=== PATIENT | male | born 1965 | race Two or more races ===

== ENCOUNTER 2020-08-30 09:06 | Inpatient (IN) | payer MEDICAID ==
[2020-08-30] VITALS (18 sets, daily range): BP systolic 98–127; BP diastolic 53–84
[~2020-08-30] VITALS: Ht 172.7 cm; Wt 60.0 kg
[~2020-08-30 09:06] MED LIST: NO HOME MEDS
[2020-08-30 10:02] LABS: MEAN PLATELET VOLUME 8.2 FL (7.4-10.4)
[2020-08-30 10:04] LABS: MEAN CORPUSCULAR HEMOGLOBIN 14.1 PG (27.0-31.0); MEAN CORPUSCULAR HGB CONC 26.7 g/dL (33.0-36.5); MEAN CORPUSCULAR VOLUME 52.7 FL (78-98); PLATELET COUNT 872 X10'3 (140-440); RED BLOOD COUNT 2.47 X10'6 (4.70-6.10); RED CELL DISTRIBUTION WIDTH 21.2 % (11.5-14.5)
[2020-08-30 10:07] LABS: HEMOGLOBIN 3.5 g/dl (14.0-17.9)
--- NOTE | 2020-08-30 10:07 | NUR ---
lab called, hgb 3.5, hct 13.2, plt 902
[2020-08-30 10:18] LABS: ALBUMIN 2.3 G/DL (3.4-5.0); ALBUMIN/GLOBULIN RATIO 0.5 (1.1-1.5); ALKALINE PHOSPHATASE 106 IU/L (46-116); ANION GAP 13 (8-16); ASPARTATE AMINO TRANSFERASE 9 U/L (10-37); BILIRUBIN,TOTAL 0.3 MG/DL (0.1-1.0); BLOOD UREA NITROGEN 10 MG/DL (7-18); BUN/CREATININE RATIO 12.3 (5.4-32.0); CALCIUM 7.9 MG/DL (8.5-10.1); CHLORIDE 103 MMOL/L (99-107); CREATININE 0.81 MG/DL (0.60-1.10); GLUCOSE 102 MG/DL (70-104); POTASSIUM 3.7 MMOL/L (3.5-5.1); SODIUM 137 MMOL/L (135-145); TOTAL CARBON DIOXIDE 21.4 MMOL/L (24-32); TOTAL PROTEIN 7.2 G/DL (6.4-8.2); eGFR > 90 ML/MIN
[2020-08-30 10:47] LABS: PLATELET ESTIMATE INCREASED; TOTAL CELLS COUNTED 100
[2020-08-30 10:48] LABS: ALANINE AMINOTRANSFERASE < 6 U/L (12-78); ANISOCYTOSIS 3+; MICROCYTOSIS 3+
[2020-08-30 10:49] LABS: ELLIPTOCYTES FEW; HYPOCHROMASIA 3+; LARGE PLATELETS FEW
[2020-08-30 10:50] LABS: TEAR DROP CELLS FEW
[2020-08-30] MEDS ORDERED: iohexol 300mg/ml 100ml inj. ONE (10:55)
--- NOTE | 2020-08-30 13:26 | NUR ---
TAKEN OVER FROM ZIGGY HOUSER.
[2020-08-30] MEDS ORDERED: potassium Cl 40MEQ/1/2NS 520ml 520 ML IV PRN ×2 (13:40)
[2020-08-30] MEDS ORDERED: magnesium 4gm in 100ml NS 100 ML IV PRN (13:40)
[2020-08-30] MEDS ORDERED: mag hydrox/Alum hydrox/simeth 30ml oral suspension PO PRN (13:40)
[2020-08-30] MEDS ORDERED: potassium Cl 20 mEq SR tablet PO PRN ×2 (13:40)
[2020-08-30] MEDS ORDERED: magnesium hydroxide 30ml (MOM) UD suspension PO PRN (13:40)
[2020-08-30] MEDS ORDERED: ondansetron/PF 4mg/2ml inj IV PRN (13:40)
[2020-08-30] MEDS ORDERED: magnesium 2GM in 50ml NS 50 ML IV PRN (13:40)
[2020-08-30] MEDS ORDERED: acetaminophen 325mg tablet PO PRN (13:40)
[2020-08-30] MEDS: clindamycin 600mg/D5W 50ml 50 ML IV SCH ×2 (14:42→22:45)
[2020-08-30 17:34] LABS: MEAN CORPUSCULAR HEMOGLOBIN 18.9 PG (27.0-31.0); MEAN CORPUSCULAR HGB CONC 30.2 g/dL (33.0-36.5); MEAN CORPUSCULAR VOLUME 62.6 FL (78-98); MEAN PLATELET VOLUME 8.1 FL (7.4-10.4); PLATELET COUNT 702 X10'3 (140-440); RED BLOOD COUNT 2.99 X10'6 (4.70-6.10); RED CELL DISTRIBUTION WIDTH 35.8 % (11.5-14.5); WHITE BLOOD COUNT 8.5 X10'3 (4.5-11.0)
[2020-08-30 17:40] LABS: HEMATOCRIT 18.7 % (42.0-52.0); HEMOGLOBIN 5.7 g/dl (14.0-17.9)
--- NOTE | 2020-08-30 17:46 | NUR ---
RECIVED CALL FROM DR MARRUFO THAT HE TRIED TO ORDER 2 UNITS BUT UNABLE TO ORDER PER MD IF I CAN CALL BLD BANK TO FIX IT.CALLED BLOOD BANK AND PER THEM THEY WILL FIX IT AND BLOOD WILL BE READY IN 5 MIN.
--- NOTE | 2020-08-30 19:07 | NUR ---
BLOOD TRANSFUSION STARTED PT GIVEN DINNER TRAY BLOOD INFUSION BEGAN AT 100 ML AN HR
--- NOTE | 2020-08-30 19:30 | NUR ---
pt wound dressing in place dry intact . placed by previous shift as ordered
--- NOTE | 2020-08-30 19:45 | NUR ---
INCREASED TRANSFUSION TO 280N ML AN HR PT TOLERATING WELL IV PATENT
[2020-08-30] MEDS: K and/or MAG REPLACEMENT MC SCH (20:00)
[2020-08-30 23:18] LABS: HEMOGLOBIN 8.2 g/dl (14.0-17.9); MEAN CORPUSCULAR VOLUME 68.8 FL (78-98)
[2020-08-30 23:19] LABS: HEMATOCRIT 25.3 % (42.0-52.0); MEAN CORPUSCULAR HEMOGLOBIN 22.4 PG (27.0-31.0); MEAN CORPUSCULAR HGB CONC 32.5 g/dL (33.0-36.5); MEAN PLATELET VOLUME 8.4 FL (7.4-10.4); PLATELET COUNT 659 X10'3 (140-440); RED BLOOD COUNT 3.67 X10'6 (4.70-6.10); RED CELL DISTRIBUTION WIDTH 36.6 % (11.5-14.5)
--- NOTE | 2020-08-31 02:38 | NUR ---
pt transfered to a regular hospital bed
[2020-08-31] MEDS: clindamycin 600mg/D5W 50ml 50 ML IV SCH ×4 (04:40→19:36)
--- NOTE | 2020-08-31 06:59 | NUR ---
Patient in room ED 11. I have received report from Lata HOUSER and had the opportunity to ask questions and assume patient care.
[2020-08-31 08:00] VITALS: BP 122/73
[2020-08-31] MEDS: K and/or MAG REPLACEMENT MC SCH ×2 (08:00→19:34)
[2020-08-31 09:40] LABS: HEMATOCRIT 28.5 % (42.0-52.0); MEAN CORPUSCULAR HEMOGLOBIN 21.7 PG (27.0-31.0); MEAN CORPUSCULAR HGB CONC 31.6 g/dL (33.0-36.5); MEAN CORPUSCULAR VOLUME 68.9 FL (78-98); MEAN PLATELET VOLUME 8.6 FL (7.4-10.4); PLATELET COUNT 730 X10'3 (140-440); RED BLOOD COUNT 4.14 X10'6 (4.70-6.10); RED CELL DISTRIBUTION WIDTH 36.4 % (11.5-14.5); WHITE BLOOD COUNT 8.3 X10'3 (4.5-11.0)
[2020-08-31 10:00] VITALS: BP 106/57
[2020-08-31 10:00] LABS: ASPARTATE AMINO TRANSFERASE 6 U/L (10-37); BLOOD UREA NITROGEN 6 MG/DL (7-18)
[2020-08-31 10:02] LABS: ALANINE AMINOTRANSFERASE 10 U/L (12-78); ALBUMIN 2.2 G/DL (3.4-5.0); ALBUMIN/GLOBULIN RATIO 0.5 (1.1-1.5); ALKALINE PHOSPHATASE 96 IU/L (46-116); ANION GAP 7 (8-16); BILIRUBIN,TOTAL 0.9 MG/DL (0.1-1.0); CALCIUM 8.3 MG/DL (8.5-10.1); CHLORIDE 106 MMOL/L (99-107); CREATININE 0.67 MG/DL (0.60-1.10); GLUCOSE 84 MG/DL (70-104); MAGNESIUM 2.4 MG/DL (1.5-2.4); POTASSIUM 4.5 MMOL/L (3.5-5.1); SODIUM 139 MMOL/L (135-145); TOTAL CARBON DIOXIDE 26.5 MMOL/L (24-32); eGFR > 90 ML/MIN
[2020-08-31] MEDS ORDERED: HYDROcodone/acetaminophen 5mg/325mg tablet PO PRN (10:20)
[2020-08-31] MEDS ORDERED: HYDROcodone/acetaminophen 10/325mg tab PO PRN (10:20)
[2020-08-31 10:22] LABS: % IRON SATURATION 9 % (11-46); IRON 23 UG/DL (53-167); TOTAL IRON BINDING CAPACITY 243 UG/DL (259-388)
[2020-08-31 14:23] LABS: HEMATOCRIT 28.7 % (42.0-52.0); HEMOGLOBIN 9.1 g/dl (14.0-17.9); MEAN CORPUSCULAR HEMOGLOBIN 21.8 PG (27.0-31.0); MEAN CORPUSCULAR HGB CONC 31.9 g/dL (33.0-36.5); MEAN CORPUSCULAR VOLUME 68.3 FL (78-98); MEAN PLATELET VOLUME 8.4 FL (7.4-10.4); PLATELET COUNT 754 X10'3 (140-440); RED CELL DISTRIBUTION WIDTH 36.6 % (11.5-14.5); WHITE BLOOD COUNT 8.9 X10'3 (4.5-11.0)
[2020-08-31 18:00] VITALS: BP 126/73
--- NOTE | 2020-08-31 18:38 | NUR ---
Problems reprioritized. Patient report given, questions answered & plan of care reviewed with Vaishnavi HOUSER.
[2020-08-31] MEDS: lactobacillus rhamnosus 10,000 MMU CELLS/CAPSULE PO SCH ×2 (19:36→19:47)
[2020-08-31 22:00] VITALS: BP 121/59
[2020-08-31 22:43] LABS: HEMATOCRIT 29.6 % (42.0-52.0); HEMOGLOBIN 9.2 g/dl (14.0-17.9); MEAN CORPUSCULAR HEMOGLOBIN 21.5 PG (27.0-31.0); MEAN CORPUSCULAR HGB CONC 31.2 g/dL (33.0-36.5); MEAN PLATELET VOLUME 8.4 FL (7.4-10.4); PLATELET COUNT 698 X10'3 (140-440); RED BLOOD COUNT 4.29 X10'6 (4.70-6.10); RED CELL DISTRIBUTION WIDTH 37.2 % (11.5-14.5); WHITE BLOOD COUNT 10.8 X10'3 (4.5-11.0)
[2020-09-01] MEDS: clindamycin 600mg/D5W 50ml 50 ML IV SCH ×2 (02:03→08:37)
[2020-09-01 06:00] VITALS: BP 124/79
[2020-09-01 06:04] LABS: HEMATOCRIT 28.8 % (42.0-52.0); MEAN CORPUSCULAR HEMOGLOBIN 21.6 PG (27.0-31.0); MEAN CORPUSCULAR HGB CONC 31.4 g/dL (33.0-36.5); MEAN PLATELET VOLUME 8.3 FL (7.4-10.4); PLATELET COUNT 698 X10'3 (140-440); RED BLOOD COUNT 4.18 X10'6 (4.70-6.10); RED CELL DISTRIBUTION WIDTH 37.1 % (11.5-14.5); WHITE BLOOD COUNT 9.8 X10'3 (4.5-11.0)
--- NOTE | 2020-09-01 06:06 | NUR ---
Problems reprioritized. Patient report given, questions answered & plan of care reviewed with CORRINA Diaz.
[2020-09-01 06:24] LABS: ALANINE AMINOTRANSFERASE 10 U/L (12-78); ALBUMIN 2.2 G/DL (3.4-5.0); ALBUMIN/GLOBULIN RATIO 0.5 (1.1-1.5); ALKALINE PHOSPHATASE 95 IU/L (46-116); ANION GAP 8 (8-16); ASPARTATE AMINO TRANSFERASE 9 U/L (10-37); BILIRUBIN,TOTAL 0.5 MG/DL (0.1-1.0); BLOOD UREA NITROGEN 10 MG/DL (7-18); BUN/CREATININE RATIO 12.2 (5.4-32.0); CALCIUM 8.2 MG/DL (8.5-10.1); CHLORIDE 104 MMOL/L (99-107); CREATININE 0.82 MG/DL (0.60-1.10); GLUCOSE 97 MG/DL (70-104); MAGNESIUM 2.3 MG/DL (1.5-2.4); POTASSIUM 4.4 MMOL/L (3.5-5.1); SODIUM 136 MMOL/L (135-145); TOTAL CARBON DIOXIDE 24.2 MMOL/L (24-32); TOTAL PROTEIN 6.9 G/DL (6.4-8.2); eGFR > 90 ML/MIN
--- NOTE | 2020-09-01 06:29 | NUR ---
Patient in room ORTHO 4015. I have received report from Jessica HOUSER and had the opportunity to ask questions and assume patient care.
[2020-09-01] MEDS: lactobacillus rhamnosus 10,000 MMU CELLS/CAPSULE PO SCH (08:00)
[2020-09-01] MEDS: K and/or MAG REPLACEMENT MC SCH (08:00)
[2020-09-01] MEDS ORDERED: iron sucrose complex injection 200 MG in normal saline 100ml IV soln 100 ML IV SCH (08:00)
[2020-09-01 10:00] VITALS: BP 116/66
--- NOTE | 2020-09-01 10:00 | NUR ---
wound care consulted for multiple wounds on patient. Pictures in chart indicated atleast 10 wounds all over patients body. Patient refused for wound care to examine or treat wounds. primary nurse notified.
[2020-09-01] MEDS ORDERED: CLIN-97 PO (10:48)
--- NOTE | 2020-09-01 11:19 | NUR ---
Pictures taken on admit yesterday 08/31/20. Pt refusing pictures on discharge Addendum: 09/01/20 at 1120 by Emily Sinha RN Amended: Links added.
--- NOTE | 2020-09-01 13:16 | NUR ---
Pt dischagred [facility] @ 5401. Pt belongings sent with pt. Against medical advice patient removed IV and Tele. Pt refused iv pressure bandages or Optifoams on wounds. Prescription called to [facility] on [address] per pts request. Pt was wheeled down to bus stop in stable condition. Pt highly encouraged to seek out community resources.
== END 2020-09-01 13:10 | disposition home or self-care (01) | DRG 110 ==
LOC: ER 09:07 → ED HOLD 13:39 → ORTHO 4S 08-31 07:50
PROVIDERS: ADMIT Family Medicine; ATTEND Family Medicine
PROC: 30233N1 Transfusion of Nonautologous Red Blood Cells into Peripheral Vein, Percutaneous Approach (ICD-10-PCS; principal; 2020-08-30)
DX: C76.0 Malignant neoplasm of head, face and neck (principal); C79.2 Secondary malignant neoplasm of skin; D64.9 Anemia, unspecified; Z91.19 Patient's noncompliance with other medical treatment and regimen; Z87.891 Personal history of nicotine dependence; Z85.828 Personal history of other malignant neoplasm of skin; E61.1 Iron deficiency
CPT/HCPCS: 36415; 36430; 70491; 80053; 83540; 83550; 83605; 83735; 85007; 85025; 85027; 86885; 86900; 86901; 86920; 87040; 87081; 99285; G0378; J1756; J3490; P9016; Q9967

== ENCOUNTER 2020-12-28 18:25 | Emergency (ER) | payer MEDICAID ==
[~2020-12-28] VITALS: Ht 172.7 cm; Wt 68.2 kg
[~2020-12-28 18:25] MED LIST changes: +CLIN-97 PO; -NO HOME MEDS
[2020-12-28 18:47] VITALS: BP 120/60
== END 2020-12-29 00:19 | disposition left against medical advice (07) ==
LOC: ER 18:25
DX: R19.7 Diarrhea, unspecified (principal); Z53.21 Procedure and treatment not carried out due to patient leaving prior to being seen by health care provider

== ENCOUNTER 2021-01-17 18:06 | Inpatient (IN) | payer MEDICAID ==
[~2021-01-17] VITALS: Ht 177.8 cm; Wt 68.2 kg
[2021-01-17 20:39] LABS: BASOPHILS # (AUTO) 0.2 X10'3 (0-0.2); MEAN PLATELET VOLUME 6.9 FL (7.4-10.4); NEUTROPHILS # (AUTO) 6.2 X10'3 (1.8-7.7)
[2021-01-17 20:41] LABS: BASOPHILS % (AUTO) 2.3 % (0-1); EOSINOPHILS # (AUTO) 0.1 X10'3 (0-0.9); EOSINOPHILS % (AUTO) 1.7 % (0-6); LYMPHOCYTES # (AUTO) 1.9 X10'3 (1.1-4.8); LYMPHOCYTES % (AUTO) 21.6 % (21-51); MEAN CORPUSCULAR HEMOGLOBIN 13.6 PG (27.0-31.0); MEAN CORPUSCULAR VOLUME 52.3 FL (78-98); MONOCYTES # (AUTO) 0.5 X10'3 (0-0.9); MONOCYTES % (AUTO) 5.4 % (2-12); PLATELET COUNT 990 X10'3 (140-440); RED BLOOD COUNT 2.38 X10'6 (4.70-6.10); RED CELL DISTRIBUTION WIDTH 20.9 % (11.5-14.5); WHITE BLOOD COUNT 8.9 X10'3 (4.5-11.0)
[2021-01-17 20:53] LABS: ALANINE AMINOTRANSFERASE 8 U/L (12-78); ALBUMIN 2.4 G/DL (3.4-5.0); ALBUMIN/GLOBULIN RATIO 0.5 (1.1-1.5); ALKALINE PHOSPHATASE 100 IU/L (46-116); ANION GAP 8 (8-16); ASPARTATE AMINO TRANSFERASE 7 U/L (10-37); BILIRUBIN,TOTAL 0.4 MG/DL (0.1-1.0); BLOOD UREA NITROGEN 11 MG/DL (7-18); BUN/CREATININE RATIO 14.3 (5.4-32.0); CALCIUM 8.1 MG/DL (8.5-10.1); CHLORIDE 102 MMOL/L (99-107); CREATININE 0.77 MG/DL (0.60-1.10); GLUCOSE 98 MG/DL (70-104); POTASSIUM 3.2 MMOL/L (3.5-5.1); SODIUM 132 MMOL/L (135-145); TOTAL CARBON DIOXIDE 22.4 MMOL/L (24-32); TOTAL PROTEIN 7.2 G/DL (6.4-8.2); eGFR > 90 ML/MIN
[2021-01-17] MEDS ORDERED: potassium Cl 20 mEq SR tablet PO STA (20:59)
[2021-01-17 21:01] LABS: HEMOGLOBIN 3.2 g/dl (14.0-17.9)
[2021-01-17 21:02] LABS: HEMATOCRIT 12.5 % (42.0-52.0)
[2021-01-17 21:31] LABS: ANISOCYTOSIS 3+; MICROCYTOSIS 3+; PLATELET ESTIMATE INCREASED
[2021-01-17 21:39] LABS: ELLIPTOCYTES FEW
[2021-01-17 21:40] LABS: TARGET CELLS FEW
[2021-01-17] MEDS ORDERED: magnesium hydroxide 30ml (MOM) UD suspension PO PRN (21:45)
[2021-01-17] MEDS ORDERED: potassium Cl 40MEQ/1/2NS 520ml 520 ML IV PRN ×2 (21:45)
[2021-01-17] MEDS ORDERED: acetaminophen 325mg tablet PO PRN (21:45)
[2021-01-17] MEDS ORDERED: mag hydrox/Alum hydrox/simeth 30ml oral suspension PO PRN (21:45)
[2021-01-17] MEDS ORDERED: potassium Cl 20 mEq SR tablet PO PRN ×2 (21:45)
[2021-01-17] MEDS ORDERED: ondansetron/PF 4mg/2ml inj IV PRN (21:45)
[2021-01-17] MEDS ORDERED: NORMAL SALINE IV ONE (21:45)
[2021-01-17] MEDS ORDERED: IRON SUCROSE COMPLEX IV ONE (21:45)
[2021-01-17 21:48] VITALS: BP 114/63
[2021-01-17 21:48] LABS: POLYCHROMASIA FEW
[2021-01-17 21:49] LABS: HYPOCHROMASIA 2+
[2021-01-17 22:07] VITALS: BP 119/69
[2021-01-17 23:07] VITALS: BP 90/56
[2021-01-18] VITALS (7 sets, daily range): BP systolic 93–128; BP diastolic 47–85
[2021-01-18] MEDS: normal saline 1000ml 1,000 ML IV SCH (01:28)
[2021-01-18] MEDS ORDERED: NO HOME MEDS (02:24)
[2021-01-18 02:35] LABS: ALANINE AMINOTRANSFERASE 8 U/L (12-78); ALBUMIN/GLOBULIN RATIO 0.5 (1.1-1.5); ALKALINE PHOSPHATASE 92 IU/L (46-116); ANION GAP 7 (8-16); ASPARTATE AMINO TRANSFERASE 5 U/L (10-37); BILIRUBIN,TOTAL 0.8 MG/DL (0.1-1.0); BLOOD UREA NITROGEN 14 MG/DL (7-18); BUN/CREATININE RATIO 17.7 (5.4-32.0); CALCIUM 7.5 MG/DL (8.5-10.1); CHLORIDE 108 MMOL/L (99-107); CREATININE 0.79 MG/DL (0.60-1.10); GLUCOSE 104 MG/DL (70-104); POTASSIUM 4.2 MMOL/L (3.5-5.1); SODIUM 139 MMOL/L (135-145); TOTAL CARBON DIOXIDE 24.1 MMOL/L (24-32); TOTAL PROTEIN 6.3 G/DL (6.4-8.2); eGFR > 90 ML/MIN
[2021-01-18 02:42] LABS: BASOPHILS # (AUTO) 0.2 X10'3 (0-0.2); EOSINOPHILS # (AUTO) 0.2 X10'3 (0-0.9); NEUTROPHILS # (AUTO) 5.5 X10'3 (1.8-7.7)
[2021-01-18 02:44] LABS: ABSOLUTE RETICS # 40100 /CUMM (23000-93000); BASOPHILS % (AUTO) 2.4 % (0-1); EOSINOPHILS % (AUTO) 2.4 % (0-6); LYMPHOCYTES # (AUTO) 1.4 X10'3 (1.1-4.8); LYMPHOCYTES % (AUTO) 17.5 % (21-51); MEAN CORPUSCULAR HEMOGLOBIN 19.1 PG (27.0-31.0); MEAN CORPUSCULAR HGB CONC 30.2 g/dL (33.0-36.5); MEAN CORPUSCULAR VOLUME 63.5 FL (78-98); MEAN PLATELET VOLUME 8.4 FL (7.4-10.4); MONOCYTES # (AUTO) 0.7 X10'3 (0-0.9); MONOCYTES % (AUTO) 8.7 % (2-12); PLATELET COUNT 782 X10'3 (140-440); RED BLOOD COUNT 2.63 X10'6 (4.70-6.10); RED CELL DISTRIBUTION WIDTH 36.9 % (11.5-14.5); RETICULOCYTE % (AUTO) 1.5 % (0.5-1.5)
[2021-01-18 02:48] LABS: HEMATOCRIT 16.7 % (42.0-52.0)
[2021-01-18 04:21] LABS: ANISOCYTOSIS 3+; HYPOCHROMASIA 3+; MICROCYTOSIS 2+; NUCLEATED RED BLOOD CELLS 1 /100WBC (0-0); PLATELET ESTIMATE INCREASED; POLYCHROMASIA FEW; TOTAL CELLS COUNTED 100
[2021-01-18 04:22] LABS: ELLIPTOCYTES FEW; TEAR DROP CELLS FEW
--- NOTE | 2021-01-18 06:55 | NUR ---
ATTEMOTED TO CALL REPORT, RN UNAVAILABLE, STATES WILL CALL ONCE AVAILABLE.
[2021-01-18] MEDS: docusate sod 100mg capsule PO SCH ×2 (08:00→20:00)
[2021-01-18] MEDS: K and/or MAG REPLACEMENT MC SCH ×2 (08:00→20:00)
--- NOTE | 2021-01-18 08:55 | NUR ---
ER nurse I got report to this am said they repeated CBC at 06:30am but did not find the result nor any order put it so I ordered a STAT hemogram to see what's the latest hgb/hct.
[2021-01-18 09:31] LABS: MEAN CORPUSCULAR VOLUME 65.1 FL (78-98); WHITE BLOOD COUNT 9.1 X10'3 (4.5-11.0)
[2021-01-18 09:33] LABS: MEAN CORPUSCULAR HEMOGLOBIN 20.9 PG (27.0-31.0); MEAN CORPUSCULAR HGB CONC 32.1 g/dL (33.0-36.5); MEAN PLATELET VOLUME 8.2 FL (7.4-10.4); PLATELET COUNT 767 X10'3 (140-440); RED BLOOD COUNT 3.07 X10'6 (4.70-6.10); RED CELL DISTRIBUTION WIDTH 36.6 % (11.5-14.5)
[2021-01-18 09:36] LABS: HEMOGLOBIN 6.4 g/dl (14.0-17.9)
--- NOTE | 2021-01-18 09:38 | NUR ---
Paged Dr. Coto PAGER ID: [phone] MESSAGE: Roque HOUSER ext [phone]. RE: Ramon Graham. Reporting critical lab . Do you want more blood transfusion? Addendum: 01/18/21 at 0941 by Roque Bocanegra RN Dr. Coto called me back said she will review the record and to hold off to the blood transfusion for now
[2021-01-18] MEDS: HYDROcodone/acetaminophen 5mg/325mg tablet PO PRN (11:46)
[2021-01-18 12:09] LABS: % IRON SATURATION 107 % (11-46); IRON 242 UG/DL (53-167); TOTAL IRON BINDING CAPACITY 227 UG/DL (259-388)
--- NOTE | 2021-01-18 16:00 | NUR ---
Per Dr. Coto, no blood transfusion needed at this time and to make patient NPO after midnight
--- NOTE | 2021-01-18 16:35 | NUR ---
LATE ENTRY: When Dr. Coto made rounds, I mentioned to her that patient's left neck wound was bleeding but not much.
[2021-01-18] MEDS: iron sucrose complex injection 300 MG in normal saline 250ml IV soln 235 ML IV SCH (20:00)
--- NOTE | 2021-01-18 20:12 | NUR ---
Patient in room JEFE 358A. I have received report from [facility] and had the opportunity to ask questions and assume patient care.
[2021-01-19] VITALS: BP 106/50
[2021-01-19] MEDS: HYDROcodone/acetaminophen 5mg/325mg tablet PO PRN ×2 (03:53→21:06)
[2021-01-19 06:03] LABS: EOSINOPHILS # (AUTO) 0.5 X10'3 (0-0.9); LYMPHOCYTES # (AUTO) 1.8 X10'3 (1.1-4.8); MEAN PLATELET VOLUME 8.3 FL (7.4-10.4)
[2021-01-19 06:06] LABS: BASOPHILS # (AUTO) 0.3 X10'3 (0-0.2); BASOPHILS % (AUTO) 1.8 % (0-1); EOSINOPHILS % (AUTO) 3.7 % (0-6); LYMPHOCYTES % (AUTO) 13.1 % (21-51); MEAN CORPUSCULAR HEMOGLOBIN 19.7 PG (27.0-31.0); MEAN CORPUSCULAR HGB CONC 30.1 g/dL (33.0-36.5); MEAN CORPUSCULAR VOLUME 65.5 FL (78-98); MONOCYTES % (AUTO) 7.1 % (2-12); NEUTROPHILS # (AUTO) 10.4 X10'3 (1.8-7.7); NEUTROPHILS % (AUTO) 74.3 % (42-75); PLATELET COUNT 775 X10'3 (140-440); RED BLOOD COUNT 3.25 X10'6 (4.70-6.10)
[2021-01-19 06:20] LABS: HEMATOCRIT 21.3 % (42.0-52.0); HEMOGLOBIN 6.4 g/dl (14.0-17.9)
--- NOTE | 2021-01-19 06:24 | NUR ---
Problems reprioritized. Patient report given, questions answered & plan of care reviewed with CORRINA Naik .
[2021-01-19 06:26] LABS: ALANINE AMINOTRANSFERASE 6 U/L (12-78); ALBUMIN/GLOBULIN RATIO 0.5 (1.1-1.5); ALKALINE PHOSPHATASE 82 IU/L (46-116); ANION GAP 11 (8-16); ASPARTATE AMINO TRANSFERASE 7 U/L (10-37); BILIRUBIN,TOTAL 0.4 MG/DL (0.1-1.0); BLOOD UREA NITROGEN 10 MG/DL (7-18); BUN/CREATININE RATIO 14.3 (5.4-32.0); CALCIUM 7.8 MG/DL (8.5-10.1); CHLORIDE 103 MMOL/L (99-107); GLUCOSE 93 MG/DL (70-104); POTASSIUM 4.1 MMOL/L (3.5-5.1); SODIUM 136 MMOL/L (135-145); TOTAL PROTEIN 6.4 G/DL (6.4-8.2); eGFR > 90 ML/MIN
--- NOTE | 2021-01-19 06:30 | NUR ---
Patient in room JEFE 358. I have received report from Taylor HOUSER and had the opportunity to ask questions and assume patient care.
[2021-01-19 06:57] LABS: ANISOCYTOSIS 3+; NUCLEATED RED BLOOD CELLS 2 /100WBC (0-0); PLATELET ESTIMATE INCREASED; TOTAL CELLS COUNTED 100
[2021-01-19 06:58] LABS: GIANT PLATELET FEW; LARGE PLATELETS FEW
[2021-01-19 06:59] LABS: HYPOCHROMASIA 2+; MICROCYTOSIS 2+; POLYCHROMASIA 2+; SCHISTOCYTES FEW; TEAR DROP CELLS FEW
[2021-01-19 07:00] VITALS: BP 104/63
[2021-01-19 07:00] LABS: TARGET CELLS FEW
[2021-01-19] MEDS: K and/or MAG REPLACEMENT MC SCH ×2 (08:00→20:00)
[2021-01-19] MEDS: docusate sod 100mg capsule PO SCH ×2 (09:50→21:05)
[2021-01-19] MEDS: vancomycin/NS 1 GM ADD-VANTAGE 250 ML IV SCH ×2 (11:50→19:27)
[2021-01-19 12:00] VITALS: BP 94/52
--- NOTE | 2021-01-19 18:30 | NUR ---
Patient in room JEFE 358a. I have received report from CORRINA Naik and had the opportunity to ask questions and assume patient care.
[2021-01-19 20:00] VITALS: BP 107/56
[2021-01-19] MEDS: iron sucrose complex injection 300 MG in normal saline 250ml IV soln 235 ML IV SCH (20:00)
[2021-01-19] MEDS: normal saline 1000ml 1,000 ML IV SCH (21:45)
[2021-01-20] VITALS (11 sets, daily range): BP systolic 101–121; BP diastolic 46–76
[2021-01-20] MEDS: vancomycin/NS 1 GM ADD-VANTAGE 250 ML IV SCH ×3 (03:21→22:34)
--- NOTE | 2021-01-20 06:50 | NUR ---
Patient in room JEFE 358. I have received report from CORRINA Vazquez and had the opportunity to ask questions and assume patient care.
[2021-01-20 07:04] LABS: EOSINOPHILS # (AUTO) 0.2 X10'3 (0-0.9); EOSINOPHILS % (AUTO) 1.7 % (0-6); MEAN CORPUSCULAR HGB CONC 30.7 g/dL (33.0-36.5); MONOCYTES # (AUTO) 0.9 X10'3 (0-0.9); RED BLOOD COUNT 3.17 X10'6 (4.70-6.10); WHITE BLOOD COUNT 11.4 X10'3 (4.5-11.0)
[2021-01-20 07:06] LABS: BASOPHILS # (AUTO) 0.1 X10'3 (0-0.2); BASOPHILS % (AUTO) 1.1 % (0-1); LYMPHOCYTES % (AUTO) 9.1 % (21-51); MEAN CORPUSCULAR HEMOGLOBIN 20.3 PG (27.0-31.0); MEAN PLATELET VOLUME 8.1 FL (7.4-10.4); MONOCYTES % (AUTO) 8.3 % (2-12); NEUTROPHILS # (AUTO) 9.1 X10'3 (1.8-7.7); NEUTROPHILS % (AUTO) 79.8 % (42-75); PLATELET COUNT 647 X10'3 (140-440)
[2021-01-20 07:15] LABS: HEMOGLOBIN 6.4 g/dl (14.0-17.9)
[2021-01-20 07:16] LABS: ANION GAP 7 (8-16); BLOOD UREA NITROGEN 8 MG/DL (7-18); BUN/CREATININE RATIO 13.6 (5.4-32.0); CALCIUM 8.1 MG/DL (8.5-10.1); CHLORIDE 102 MMOL/L (99-107); CREATININE 0.59 MG/DL (0.60-1.10); GLUCOSE 90 MG/DL (70-104); POTASSIUM 3.8 MMOL/L (3.5-5.1); SODIUM 132 MMOL/L (135-145); TOTAL CARBON DIOXIDE 23.4 MMOL/L (24-32); eGFR > 90 ML/MIN
[2021-01-20 07:17] LABS: ALANINE AMINOTRANSFERASE 8 U/L (12-78); ALBUMIN/GLOBULIN RATIO 0.5 (1.1-1.5); ALKALINE PHOSPHATASE 90 IU/L (46-116); ASPARTATE AMINO TRANSFERASE 8 U/L (10-37); BILIRUBIN,TOTAL 0.5 MG/DL (0.1-1.0); TOTAL PROTEIN 6.4 G/DL (6.4-8.2)
[2021-01-20] MEDS: K and/or MAG REPLACEMENT MC SCH ×2 (08:00→19:55)
[2021-01-20] MEDS ORDERED: clindamycin 150mg capsule PO SCH (08:00)
[2021-01-20 08:01] LABS: ANISOCYTOSIS 3+; LARGE PLATELETS FEW; MICROCYTOSIS 2+; NUCLEATED RED BLOOD CELLS 1 /100WBC (0-0); PLATELET ESTIMATE INCREASED; TOTAL CELLS COUNTED 100
[2021-01-20 08:02] LABS: HYPOCHROMASIA 1+; POLYCHROMASIA 1+; SCHISTOCYTES FEW; TARGET CELLS FEW; TEAR DROP CELLS FEW
[2021-01-20] MEDS: docusate sod 100mg capsule PO SCH ×2 (10:22→22:35)
[2021-01-20] MEDS: clindamycin 150mg capsule PO SCH ×3 (10:22→23:46)
[2021-01-20] MEDS ORDERED: VANCOMYCIN LEVEL IV ONE ×2 (10:30→18:30)
--- NOTE | 2021-01-20 13:42 | NUR ---
Shree Arce (Friend) has wheelchair: [phone]
--- NOTE | 2021-01-20 17:30 | NUR ---
Paged Dr Correa regarding patients bleeding on neck wound. Received orders ok to use Surgicel to stop bleeding. Dr Coto was contemplating to get a CTA but changed mind and only received dressing orders at this time. Advised primary RN Rabia.
--- NOTE | 2021-01-20 19:00 | NUR ---
Problems reprioritized. Patient report given, questions answered & plan of care reviewed with CORRINA Vazquez.
--- NOTE | 2021-01-20 22:30 | NUR ---
Downtime form completed after second blood transfusion due to error in electronic chart by this RN with ending time of transfusion. PRBC transfusion completed at 2230 not 2030. Downtime form included in patient's chart back as well as a copy taken to blood bank to include correct times and vitals.
[2021-01-20] MEDS: lactobacillus rhamnosus 10,000 MMU CELLS/CAPSULE PO SCH (22:35)
[2021-01-20] MEDS: iron sucrose complex injection 300 MG in normal saline 250ml IV soln 235 ML IV SCH (22:35)
[2021-01-21] VITALS: BP 107/57
[2021-01-21] MEDS: vancomycin/NS 1 GM ADD-VANTAGE 250 ML IV SCH ×3 (06:23→21:05)
--- NOTE | 2021-01-21 06:26 | NUR ---
Problems reprioritized. Patient report given, questions answered & plan of care reviewed with CORRINA Camarillo .
[2021-01-21 06:30] VITALS: BP 123/62
--- NOTE | 2021-01-21 06:30 | NUR ---
Patient in room JEFE 358. I have received report from CORRINA Vazqeuz and had the opportunity to ask questions and assume patient care.
[2021-01-21 07:06] LABS: BASOPHILS # (AUTO) 0.1 X10'3 (0-0.2); BASOPHILS % (AUTO) 1.3 % (0-1); EOSINOPHILS # (AUTO) 0.3 X10'3 (0-0.9); EOSINOPHILS % (AUTO) 2.7 % (0-6); HEMATOCRIT 25.9 % (42.0-52.0); HEMOGLOBIN 8.2 g/dl (14.0-17.9); LYMPHOCYTES # (AUTO) 1.3 X10'3 (1.1-4.8); LYMPHOCYTES % (AUTO) 11.4 % (21-51); MEAN CORPUSCULAR HEMOGLOBIN 22.5 PG (27.0-31.0); MEAN CORPUSCULAR HGB CONC 31.6 g/dL (33.0-36.5); MEAN CORPUSCULAR VOLUME 71.4 FL (78-98); MEAN PLATELET VOLUME 8.1 FL (7.4-10.4); MONOCYTES # (AUTO) 0.8 X10'3 (0-0.9); MONOCYTES % (AUTO) 7.2 % (2-12); NEUTROPHILS # (AUTO) 8.6 X10'3 (1.8-7.7); NEUTROPHILS % (AUTO) 77.4 % (42-75); PLATELET COUNT 575 X10'3 (140-440); RED BLOOD COUNT 3.63 X10'6 (4.70-6.10); RED CELL DISTRIBUTION WIDTH 37.6 % (11.5-14.5); WHITE BLOOD COUNT 11.1 X10'3 (4.5-11.0)
[2021-01-21 07:09] LABS: ALANINE AMINOTRANSFERASE 8 U/L (12-78); ALBUMIN 1.9 G/DL (3.4-5.0); ALBUMIN/GLOBULIN RATIO 0.4 (1.1-1.5); ALKALINE PHOSPHATASE 91 IU/L (46-116); ANION GAP 10 (8-16); ASPARTATE AMINO TRANSFERASE 10 U/L (10-37); BILIRUBIN,TOTAL 0.4 MG/DL (0.1-1.0); BLOOD UREA NITROGEN 11 MG/DL (7-18); BUN/CREATININE RATIO 17.7 (5.4-32.0); CHLORIDE 102 MMOL/L (99-107); CREATININE 0.62 MG/DL (0.60-1.10); GLUCOSE 147 MG/DL (70-104); POTASSIUM 3.9 MMOL/L (3.5-5.1); SODIUM 134 MMOL/L (135-145); TOTAL CARBON DIOXIDE 21.9 MMOL/L (24-32); TOTAL PROTEIN 6.6 G/DL (6.4-8.2); eGFR > 90 ML/MIN
[2021-01-21] MEDS: JUVEN Smoothie Arginine/Glut./Ca2+Bmb (Juven 19.3pkt) 240ml cup PO SCH (07:30)
[2021-01-21] MEDS: K and/or MAG REPLACEMENT MC SCH ×2 (08:00→19:31)
[2021-01-21 08:05] LABS: ANISOCYTOSIS 3+; HYPOCHROMASIA 1+; MICROCYTOSIS 1+; PLATELET ESTIMATE INCREASED; POLYCHROMASIA 2+
[2021-01-21 08:06] LABS: ELLIPTOCYTES FEW; TARGET CELLS 1+
[2021-01-21 08:07] LABS: ROULEAUX 1+; SCHISTOCYTES FEW; TEAR DROP CELLS FEW
[2021-01-21] MEDS: docusate sod 100mg capsule PO SCH ×2 (08:24→20:54)
[2021-01-21] MEDS: lactobacillus rhamnosus 10,000 MMU CELLS/CAPSULE PO SCH ×2 (08:24→20:55)
[2021-01-21] MEDS: clindamycin 150mg capsule PO SCH ×2 (08:24→16:06)
[2021-01-21 11:00] VITALS: BP 114/66
--- NOTE | 2021-01-21 13:25 | NUR ---
Initial: Pt admitted w/ bleeding from skin cancer sites per EMR. Pt noted to be homeless and relies on friends to provide food for him. Pt w/ multiple wounds over neck, back, RUE, and head; photos reviewed. Pt otherwise eating 100% of meals on Regular diet, may benefit from Tavares smoothies to aid w/ wound healing. [facility] 01/20. Will continue to monitor. Recs: 1. Continue Regular diet as tolerated 2. Tavares smoothie BID BD; pending MD approval in EMR 3. Bowel care per rx 4. Weekly wts Addendum: 01/21/21 at [address] Amended: Links added.
[2021-01-21] MEDS ORDERED: VANCOMYCIN LEVEL IV ONE (13:30)
[2021-01-21] MEDS: HYDROcodone/acetaminophen 5mg/325mg tablet PO PRN (16:14)
[2021-01-21 18:00] VITALS: BP 120/67
--- NOTE | 2021-01-21 18:20 | NUR ---
Problems reprioritized. Patient report given, questions answered & plan of care reviewed with CORRINA Vazquez.
[2021-01-21] MEDS: iron sucrose complex injection 300 MG in normal saline 250ml IV soln 235 ML IV SCH (20:54)
[2021-01-21] MEDS: normal saline 1000ml 1,000 ML IV SCH (20:57)
[2021-01-22] VITALS: BP 129/69
[2021-01-22 05:55] LABS: BASOPHILS # (AUTO) 0.1 X10'3 (0-0.2); BASOPHILS % (AUTO) 0.8 % (0-1); EOSINOPHILS # (AUTO) 0.6 X10'3 (0-0.9); EOSINOPHILS % (AUTO) 5.9 % (0-6); HEMATOCRIT 29.8 % (42.0-52.0); HEMOGLOBIN 9.3 g/dl (14.0-17.9); LYMPHOCYTES # (AUTO) 1.8 X10'3 (1.1-4.8); LYMPHOCYTES % (AUTO) 16.9 % (21-51); MEAN CORPUSCULAR HEMOGLOBIN 22.6 PG (27.0-31.0); MEAN CORPUSCULAR HGB CONC 31.1 g/dL (33.0-36.5); MEAN CORPUSCULAR VOLUME 72.8 FL (78-98); MEAN PLATELET VOLUME 8.5 FL (7.4-10.4); MONOCYTES # (AUTO) 1.1 X10'3 (0-0.9); MONOCYTES % (AUTO) 10.1 % (2-12); NEUTROPHILS # (AUTO) 6.9 X10'3 (1.8-7.7); NEUTROPHILS % (AUTO) 66.3 % (42-75); PLATELET COUNT 593 X10'3 (140-440); RED CELL DISTRIBUTION WIDTH 38.6 % (11.5-14.5); WHITE BLOOD COUNT 10.4 X10'3 (4.5-11.0)
[2021-01-22] MEDS: vancomycin/NS 1 GM ADD-VANTAGE 250 ML IV SCH ×3 (05:56→22:34)
[2021-01-22 06:34] LABS: ALANINE AMINOTRANSFERASE 8 U/L (12-78); ALBUMIN/GLOBULIN RATIO 0.4 (1.1-1.5); ALKALINE PHOSPHATASE 97 IU/L (46-116); ANION GAP 11 (8-16); ASPARTATE AMINO TRANSFERASE 14 U/L (10-37); BILIRUBIN,TOTAL 0.4 MG/DL (0.1-1.0); BLOOD UREA NITROGEN 12 MG/DL (7-18); BUN/CREATININE RATIO 21.8 (5.4-32.0); CALCIUM 8.4 MG/DL (8.5-10.1); CHLORIDE 103 MMOL/L (99-107); CREATININE 0.55 MG/DL (0.60-1.10); GLUCOSE 93 MG/DL (70-104); POTASSIUM 4.1 MMOL/L (3.5-5.1); SODIUM 136 MMOL/L (135-145); TOTAL CARBON DIOXIDE 22.5 MMOL/L (24-32); TOTAL PROTEIN 6.8 G/DL (6.4-8.2); eGFR > 90 ML/MIN
--- NOTE | 2021-01-22 06:55 | NUR ---
Problems reprioritized. Patient report given, questions answered & plan of care reviewed with CORRINA Viveros.
[2021-01-22 07:22] LABS: ANISOCYTOSIS 3+; HYPOCHROMASIA 1+; MICROCYTOSIS 1+; PLATELET ESTIMATE INCREASED
[2021-01-22 07:23] LABS: LARGE PLATELETS FEW
[2021-01-22 08:00] VITALS: BP 125/60
[2021-01-22] MEDS: K and/or MAG REPLACEMENT MC SCH ×2 (08:06→20:00)
[2021-01-22] MEDS: docusate sod 100mg capsule PO SCH ×2 (08:09→21:02)
[2021-01-22] MEDS: clindamycin 150mg capsule PO SCH ×4 (08:09→23:29)
[2021-01-22] MEDS: lactobacillus rhamnosus 10,000 MMU CELLS/CAPSULE PO SCH ×2 (08:09→21:03)
--- NOTE | 2021-01-22 10:46 | NUR ---
Patient instructed not to scratch neck wound but he continues to do so. Hand covered in blood from touching neck wound. Patient refusing changing of dressing at this time.
[2021-01-22 12:00] VITALS: BP 109/51
--- NOTE | 2021-01-22 12:18 | NUR ---
Patient still refusing dressing change
[2021-01-22] MEDS: HYDROcodone/acetaminophen 5mg/325mg tablet PO PRN (16:04)
--- NOTE | 2021-01-22 17:21 | NUR ---
all wound dressings changed
--- NOTE | 2021-01-22 18:25 | NUR ---
Patient in room JEFE 358. I have received report from CORRINA Viveros and had the opportunity to ask questions and assume patient care.
[2021-01-22 20:00] VITALS: BP 110/55
[2021-01-22] MEDS: iron sucrose complex injection 300 MG in normal saline 250ml IV soln 235 ML IV SCH (21:02)
[2021-01-23] VITALS: BP 127/60
[2021-01-23] MEDS: vancomycin/NS 1 GM ADD-VANTAGE 250 ML IV SCH ×2 (06:03→16:03)
[2021-01-23 08:00] VITALS: BP 122/66
[2021-01-23] MEDS: K and/or MAG REPLACEMENT MC SCH ×2 (08:32→19:48)
[2021-01-23] MEDS: docusate sod 100mg capsule PO SCH ×2 (08:34→20:14)
[2021-01-23] MEDS: lactobacillus rhamnosus 10,000 MMU CELLS/CAPSULE PO SCH ×2 (08:34→20:14)
[2021-01-23] MEDS: clindamycin 150mg capsule PO SCH ×2 (08:34→16:03)
[2021-01-23 09:03] LABS: BASOPHILS # (AUTO) 0.1 X10'3 (0-0.2); BASOPHILS % (AUTO) 1.4 % (0-1); EOSINOPHILS # (AUTO) 0.5 X10'3 (0-0.9); EOSINOPHILS % (AUTO) 5.6 % (0-6); HEMOGLOBIN 9.6 g/dl (14.0-17.9); LYMPHOCYTES # (AUTO) 1.4 X10'3 (1.1-4.8); LYMPHOCYTES % (AUTO) 16.1 % (21-51); MEAN CORPUSCULAR HEMOGLOBIN 23.1 PG (27.0-31.0); MEAN CORPUSCULAR VOLUME 74.6 FL (78-98); MEAN PLATELET VOLUME 8.3 FL (7.4-10.4); MONOCYTES # (AUTO) 0.7 X10'3 (0-0.9); MONOCYTES % (AUTO) 8.2 % (2-12); NEUTROPHILS # (AUTO) 6.1 X10'3 (1.8-7.7); NEUTROPHILS % (AUTO) 68.7 % (42-75); PLATELET COUNT 579 X10'3 (140-440); RED BLOOD COUNT 4.15 X10'6 (4.70-6.10); RED CELL DISTRIBUTION WIDTH 38.8 % (11.5-14.5); WHITE BLOOD COUNT 8.9 X10'3 (4.5-11.0)
[2021-01-23 10:07] LABS: ALANINE AMINOTRANSFERASE 17 U/L (12-78); ALBUMIN 2.1 G/DL (3.4-5.0); ALBUMIN/GLOBULIN RATIO 0.4 (1.1-1.5); ALKALINE PHOSPHATASE 107 IU/L (46-116); ASPARTATE AMINO TRANSFERASE 24 U/L (10-37); BILIRUBIN,TOTAL 0.2 MG/DL (0.1-1.0); BLOOD UREA NITROGEN 13 MG/DL (7-18); BUN/CREATININE RATIO 19.1 (5.4-32.0); CALCIUM 8.5 MG/DL (8.5-10.1); CHLORIDE 104 MMOL/L (99-107); CREATININE 0.68 MG/DL (0.60-1.10); GLUCOSE 91 MG/DL (70-104); TOTAL CARBON DIOXIDE 23.6 MMOL/L (24-32); TOTAL PROTEIN 7.2 G/DL (6.4-8.2); eGFR > 90 ML/MIN
[2021-01-23 10:13] LABS: ANION GAP 7 (8-16); POTASSIUM 4.7 MMOL/L (3.5-5.1); SODIUM 135 MMOL/L (135-145)
[2021-01-23 11:06] LABS: ANISOCYTOSIS 3+; MICROCYTOSIS 1+; PLATELET ESTIMATE INCREASED
[2021-01-23 11:07] LABS: HYPOCHROMASIA 1+; LARGE PLATELETS FEW
[2021-01-23 11:54] VITALS: BP 124/58
--- NOTE | 2021-01-23 18:30 | NUR ---
Patient in room JEFE 358a. I have received report from CORRINA Viveros and had the opportunity to ask questions and assume patient care.
[2021-01-23 20:00] VITALS: BP 111/69
[2021-01-23] MEDS: HYDROcodone/acetaminophen 5mg/325mg tablet PO PRN (20:14)
[2021-01-23] MEDS: iron sucrose complex injection 300 MG in normal saline 250ml IV soln 235 ML IV SCH (20:14)
[2021-01-23] MEDS: normal saline 1000ml 1,000 ML IV SCH (21:50)
[2021-01-24] VITALS: BP 107/60
[2021-01-24] MEDS: clindamycin 150mg capsule PO SCH ×2 (00:21→09:03)
[2021-01-24] MEDS: cefazolin/dext.iso 2gm/50ml 50 ML IV SCH ×3 (00:21→15:29)
[2021-01-24] MEDS: diphenhydrAMINE 25mg capsule PO PRN ×2 (03:35→22:08)
--- NOTE | 2021-01-24 06:44 | NUR ---
Problems reprioritized. Patient report given, questions answered & plan of care reviewed with CORRINA Manzo .
[2021-01-24 06:56] LABS: EOSINOPHILS # (AUTO) 0.6 X10'3 (0-0.9); HEMOGLOBIN 9.4 g/dl (14.0-17.9); LYMPHOCYTES # (AUTO) 1.5 X10'3 (1.1-4.8); NEUTROPHILS # (AUTO) 5.9 X10'3 (1.8-7.7); WHITE BLOOD COUNT 8.9 X10'3 (4.5-11.0)
[2021-01-24 06:58] LABS: BASOPHILS # (AUTO) 0.2 X10'3 (0-0.2); BASOPHILS % (AUTO) 1.8 % (0-1); EOSINOPHILS % (AUTO) 6.4 % (0-6); HEMATOCRIT 29.4 % (42.0-52.0); LYMPHOCYTES % (AUTO) 17.4 % (21-51); MEAN CORPUSCULAR HEMOGLOBIN 23.4 PG (27.0-31.0); MEAN CORPUSCULAR HGB CONC 32.1 g/dL (33.0-36.5); MEAN CORPUSCULAR VOLUME 72.7 FL (78-98); MEAN PLATELET VOLUME 8.1 FL (7.4-10.4); MONOCYTES # (AUTO) 0.7 X10'3 (0-0.9); MONOCYTES % (AUTO) 8.1 % (2-12); NEUTROPHILS % (AUTO) 66.3 % (42-75); PLATELET COUNT 673 X10'3 (140-440); RED BLOOD COUNT 4.04 X10'6 (4.70-6.10); RED CELL DISTRIBUTION WIDTH 38.6 % (11.5-14.5)
[2021-01-24 07:00] VITALS: BP 90/50
--- NOTE | 2021-01-24 07:07 | NUR ---
Patient in room JEFE 358. I have received report from Frankie HOUSER and had the opportunity to ask questions and assume patient care.
[2021-01-24 07:13] LABS: ALANINE AMINOTRANSFERASE 25 U/L (12-78); ALBUMIN 2.1 G/DL (3.4-5.0); ALBUMIN/GLOBULIN RATIO 0.4 (1.1-1.5); ALKALINE PHOSPHATASE 128 IU/L (46-116); ANION GAP 8 (8-16); ASPARTATE AMINO TRANSFERASE 26 U/L (10-37); BILIRUBIN,TOTAL 0.2 MG/DL (0.1-1.0); BLOOD UREA NITROGEN 16 MG/DL (7-18); BUN/CREATININE RATIO 28.1 (5.4-32.0); CALCIUM 8.6 MG/DL (8.5-10.1); CHLORIDE 102 MMOL/L (99-107); CREATININE 0.57 MG/DL (0.60-1.10); GLUCOSE 85 MG/DL (70-104); SODIUM 135 MMOL/L (135-145); TOTAL CARBON DIOXIDE 24.9 MMOL/L (24-32); TOTAL PROTEIN 7.2 G/DL (6.4-8.2); eGFR > 90 ML/MIN
[2021-01-24 07:44] LABS: LARGE PLATELETS FEW; PLATELET ESTIMATE INCREASED
[2021-01-24 07:48] LABS: ANISOCYTOSIS 3+
[2021-01-24 07:55] LABS: HYPOCHROMASIA 2+
[2021-01-24] MEDS: K and/or MAG REPLACEMENT MC SCH ×2 (08:00→20:00)
[2021-01-24] MEDS: lactobacillus rhamnosus 10,000 MMU CELLS/CAPSULE PO SCH ×2 (09:03→22:07)
[2021-01-24] MEDS: docusate sod 100mg capsule PO SCH ×2 (09:05→22:07)
[2021-01-24] MEDS: HYDROcodone/acetaminophen 5mg/325mg tablet PO PRN ×3 (09:05→22:08)
[2021-01-24 11:00] VITALS: BP 111/54
--- NOTE | 2021-01-24 18:37 | NUR ---
Problems reprioritized. Patient report given, questions answered & plan of care reviewed with Kei HOUSER.
--- NOTE | 2021-01-24 18:44 | NUR ---
Patient in room JEFE 358. I have received report from Anais HOUSER and had the opportunity to ask questions and assume patient care.
[2021-01-24 20:00] VITALS: BP 132/82
[2021-01-24] MEDS: iron sucrose complex injection 300 MG in normal saline 250ml IV soln 235 ML IV SCH (22:07)
[2021-01-25 00:45] VITALS: BP 130/60
[2021-01-25] MEDS: cefazolin/dext.iso 2gm/50ml 50 ML IV SCH ×2 (01:23→09:43)
[2021-01-25 06:15] LABS: EOSINOPHILS # (AUTO) 0.6 X10'3 (0-0.9); HEMOGLOBIN 9.7 g/dl (14.0-17.9); MEAN CORPUSCULAR HEMOGLOBIN 23.3 PG (27.0-31.0); MEAN PLATELET VOLUME 8.4 FL (7.4-10.4)
[2021-01-25 06:18] LABS: BASOPHILS # (AUTO) 0.1 X10'3 (0-0.2); BASOPHILS % (AUTO) 1.7 % (0-1); EOSINOPHILS % (AUTO) 7.2 % (0-6); HEMATOCRIT 31.5 % (42.0-52.0); LYMPHOCYTES # (AUTO) 1.7 X10'3 (1.1-4.8); LYMPHOCYTES % (AUTO) 20.3 % (21-51); MEAN CORPUSCULAR HGB CONC 30.7 g/dL (33.0-36.5); MEAN CORPUSCULAR VOLUME 75.7 FL (78-98); MONOCYTES # (AUTO) 0.7 X10'3 (0-0.9); MONOCYTES % (AUTO) 8.5 % (2-12); NEUTROPHILS # (AUTO) 5.1 X10'3 (1.8-7.7); NEUTROPHILS % (AUTO) 62.3 % (42-75); PLATELET COUNT 671 X10'3 (140-440); RED BLOOD COUNT 4.16 X10'6 (4.70-6.10); RED CELL DISTRIBUTION WIDTH 37.9 % (11.5-14.5); WHITE BLOOD COUNT 8.2 X10'3 (4.5-11.0)
[2021-01-25 06:38] LABS: ALANINE AMINOTRANSFERASE 29 U/L (12-78); ALBUMIN 2.2 G/DL (3.4-5.0); ALBUMIN/GLOBULIN RATIO 0.4 (1.1-1.5); ALKALINE PHOSPHATASE 127 IU/L (46-116); ANION GAP 7 (8-16); ASPARTATE AMINO TRANSFERASE 28 U/L (10-37); BILIRUBIN,TOTAL 0.2 MG/DL (0.1-1.0); BLOOD UREA NITROGEN 16 MG/DL (7-18); BUN/CREATININE RATIO 25.4 (5.4-32.0); CALCIUM 8.6 MG/DL (8.5-10.1); CHLORIDE 104 MMOL/L (99-107); CREATININE 0.63 MG/DL (0.60-1.10); GLUCOSE 92 MG/DL (70-104); POTASSIUM 4.1 MMOL/L (3.5-5.1); SODIUM 136 MMOL/L (135-145); TOTAL CARBON DIOXIDE 25.2 MMOL/L (24-32); TOTAL PROTEIN 7.2 G/DL (6.4-8.2); eGFR > 90 ML/MIN
[2021-01-25 07:00] VITALS: BP 94/40
--- NOTE | 2021-01-25 07:06 | NUR ---
Problems reprioritized. Patient report given, questions answered & plan of care reviewed with Julieta HOUSER.
--- NOTE | 2021-01-25 07:27 | NUR ---
Patient in room JEFE 358. I have received report from Kei HOUSER and had the opportunity to ask questions and assume patient care.
[2021-01-25 07:37] LABS: LARGE PLATELETS FEW; PLATELET ESTIMATE INCREASED
[2021-01-25 07:38] LABS: ANISOCYTOSIS 3+; HYPOCHROMASIA 2+; MICROCYTOSIS 1+
[2021-01-25] MEDS: docusate sod 100mg capsule PO SCH ×2 (08:00→21:43)
[2021-01-25] MEDS: K and/or MAG REPLACEMENT MC SCH ×2 (08:00→20:00)
[2021-01-25] MEDS: HYDROcodone/acetaminophen 5mg/325mg tablet PO PRN ×3 (09:42→19:25)
[2021-01-25] MEDS: lactobacillus rhamnosus 10,000 MMU CELLS/CAPSULE PO SCH ×2 (09:42→21:42)
--- NOTE | 2021-01-25 19:07 | NUR ---
Problems reprioritized. Patient report given, questions answered & plan of care reviewed with James HOUSER.
[2021-01-25 20:00] VITALS: BP 109/64
[2021-01-25] MEDS: morphine 10mg/0.5ml (conc. morphine) oral syringe PO PRN (22:46)
[2021-01-26] VITALS: BP 106/61
[2021-01-26] MEDS: HYDROcodone/acetaminophen 5mg/325mg tablet PO PRN (04:14)
[2021-01-26] MEDS: JUVEN Smoothie Arginine/Glut./Ca2+Bmb (Juven 19.3pkt) 240ml cup PO SCH (07:30)
[2021-01-26 07:38] LABS: BASOPHILS # (AUTO) 0.2 X10'3 (0-0.2); BASOPHILS % (AUTO) 2.1 % (0-1); EOSINOPHILS # (AUTO) 0.5 X10'3 (0-0.9); LYMPHOCYTES # (AUTO) 1.6 X10'3 (1.1-4.8); MEAN CORPUSCULAR HEMOGLOBIN 23.5 PG (27.0-31.0); MEAN CORPUSCULAR HGB CONC 30.9 g/dL (33.0-36.5); MONOCYTES # (AUTO) 0.9 X10'3 (0-0.9)
[2021-01-26 07:41] LABS: EOSINOPHILS % (AUTO) 4.8 % (0-6); HEMATOCRIT 30.7 % (42.0-52.0); HEMOGLOBIN 9.5 g/dl (14.0-17.9); LYMPHOCYTES % (AUTO) 15.2 % (21-51); MEAN CORPUSCULAR VOLUME 76.1 FL (78-98); MEAN PLATELET VOLUME 8.6 FL (7.4-10.4); NEUTROPHILS # (AUTO) 7.5 X10'3 (1.8-7.7); NEUTROPHILS % (AUTO) 69.9 % (42-75); PLATELET COUNT 683 X10'3 (140-440); RED BLOOD COUNT 4.04 X10'6 (4.70-6.10); RED CELL DISTRIBUTION WIDTH 38.3 % (11.5-14.5); WHITE BLOOD COUNT 10.7 X10'3 (4.5-11.0)
[2021-01-26 07:55] LABS: ANISOCYTOSIS 3+; HYPOCHROMASIA 1+; MICROCYTOSIS 1+; PLATELET ESTIMATE INCREASED; POIKILOCYTOSIS FEW
[2021-01-26 08:00] VITALS: BP 95/64
[2021-01-26] MEDS: K and/or MAG REPLACEMENT MC SCH ×2 (08:00→20:00)
[2021-01-26] MEDS: lactobacillus rhamnosus 10,000 MMU CELLS/CAPSULE PO SCH ×2 (08:00→21:15)
[2021-01-26] MEDS: docusate sod 100mg capsule PO SCH ×2 (08:00→21:15)
[2021-01-26 08:06] LABS: ALANINE AMINOTRANSFERASE 29 U/L (12-78); ALBUMIN 2.3 G/DL (3.4-5.0); ALBUMIN/GLOBULIN RATIO 0.5 (1.1-1.5); ALKALINE PHOSPHATASE 150 IU/L (46-116); ANION GAP 6 (8-16); ASPARTATE AMINO TRANSFERASE 32 U/L (10-37); BILIRUBIN,TOTAL 0.3 MG/DL (0.1-1.0); BLOOD UREA NITROGEN 15 MG/DL (7-18); BUN/CREATININE RATIO 26.8 (5.4-32.0); CALCIUM 8.7 MG/DL (8.5-10.1); CHLORIDE 102 MMOL/L (99-107); CREATININE 0.56 MG/DL (0.60-1.10); GLUCOSE 93 MG/DL (70-104); POTASSIUM 4.1 MMOL/L (3.5-5.1); SODIUM 134 MMOL/L (135-145); TOTAL CARBON DIOXIDE 25.6 MMOL/L (24-32); TOTAL PROTEIN 7.2 G/DL (6.4-8.2); eGFR > 90 ML/MIN
[2021-01-26] MEDS: morphine 10mg/0.5ml (conc. morphine) oral syringe PO PRN ×2 (14:43→22:38)
[2021-01-26 18:00] VITALS: BP 112/56
--- NOTE | 2021-01-26 18:11 | NUR ---
Student documentation: I have reviewed all interventions, assessments performed and documented by Blane LUCIANO of [facility]. Student Medication Administration: For all medication-pass' all medication were reviewed, dispensed, administered and documented per hospital policy by Blane LUCIANO.
--- NOTE | 2021-01-26 18:12 | NUR ---
Problems reprioritized. Patient report given, questions answered & plan of care reviewed with NOC shift RN.
[2021-01-26 20:00] VITALS: BP 112/56
[2021-01-27] MEDS: diphenhydrAMINE 25mg capsule PO PRN ×2 (02:22→21:12)
[2021-01-27 05:37] LABS: BASOPHILS # (AUTO) 0.2 X10'3 (0-0.2); EOSINOPHILS # (AUTO) 0.5 X10'3 (0-0.9); WHITE BLOOD COUNT 12.2 X10'3 (4.5-11.0)
[2021-01-27 05:39] LABS: BASOPHILS % (AUTO) 1.5 % (0-1); EOSINOPHILS % (AUTO) 4.5 % (0-6); HEMATOCRIT 29.3 % (42.0-52.0); HEMOGLOBIN 9.2 g/dl (14.0-17.9); LYMPHOCYTES % (AUTO) 16.3 % (21-51); MEAN CORPUSCULAR HEMOGLOBIN 23.8 PG (27.0-31.0); MEAN CORPUSCULAR HGB CONC 31.5 g/dL (33.0-36.5); MEAN CORPUSCULAR VOLUME 75.6 FL (78-98); MEAN PLATELET VOLUME 8.3 FL (7.4-10.4); MONOCYTES % (AUTO) 8.5 % (2-12); NEUTROPHILS # (AUTO) 8.5 X10'3 (1.8-7.7); NEUTROPHILS % (AUTO) 69.2 % (42-75); PLATELET COUNT 753 X10'3 (140-440); RED BLOOD COUNT 3.87 X10'6 (4.70-6.10); RED CELL DISTRIBUTION WIDTH 37.5 % (11.5-14.5)
[2021-01-27 05:50] LABS: ALANINE AMINOTRANSFERASE 29 U/L (12-78); ALBUMIN 2.2 G/DL (3.4-5.0); ALBUMIN/GLOBULIN RATIO 0.4 (1.1-1.5); ALKALINE PHOSPHATASE 139 IU/L (46-116); ANION GAP 8 (8-16); ASPARTATE AMINO TRANSFERASE 26 U/L (10-37); BILIRUBIN,TOTAL 0.3 MG/DL (0.1-1.0); BLOOD UREA NITROGEN 16 MG/DL (7-18); BUN/CREATININE RATIO 33.3 (5.4-32.0); CALCIUM 8.6 MG/DL (8.5-10.1); CHLORIDE 102 MMOL/L (99-107); CREATININE 0.48 MG/DL (0.60-1.10); GLUCOSE 81 MG/DL (70-104); POTASSIUM 4.1 MMOL/L (3.5-5.1); SODIUM 137 MMOL/L (135-145); TOTAL CARBON DIOXIDE 26.9 MMOL/L (24-32); TOTAL PROTEIN 7.6 G/DL (6.4-8.2); eGFR > 90 ML/MIN
[2021-01-27 06:30] VITALS: BP 109/83
--- NOTE | 2021-01-27 06:40 | NUR ---
Patient in room JEFE 358. I have received report from CORRINA Ramirez and had the opportunity to ask questions and assume patient care.
--- NOTE | 2021-01-27 06:49 | NUR ---
LOLITA NTRY 0400 PT NOTED TO BE SCRATCHING HIS NECK AND HAD WOUND BLEEDING . DRSG CHANGE DONE BY APURVA HOUSER WOUND PINK VASCULAR NO ODOR. DRSG CHANGE DONE PER ORDER.
[2021-01-27] MEDS: JUVEN Smoothie Arginine/Glut./Ca2+Bmb (Juven 19.3pkt) 240ml cup PO SCH ×2 (07:57→07:58)
[2021-01-27] MEDS: K and/or MAG REPLACEMENT MC SCH ×2 (08:00→20:00)
[2021-01-27] MEDS: lactobacillus rhamnosus 10,000 MMU CELLS/CAPSULE PO SCH ×2 (09:31→19:59)
[2021-01-27] MEDS: docusate sod 100mg capsule PO SCH ×2 (09:31→19:58)
[2021-01-27 11:00] VITALS: BP 108/64
--- NOTE | 2021-01-27 14:44 | NUR ---
Reassessment: Pt continues eating well on regular diet documented with mostly 100% PO intake though down to average 50% PO intake x 4 meals on 01/25, however back to 100% PO intake today. Noted patient's code status has been made DNR with comfort care. TC to RN with recommendation to discontinue ONS in EMR. [facility] 01/26. Will continue to follow per LOS. Recommendations: 1) Bowel care per comfort care measures Addendum: 01/27/21 at [address] Amended: Links added.
--- NOTE | 2021-01-27 18:35 | NUR ---
Problems reprioritized. Patient report given, questions answered & plan of care reviewed with CORRINA Ramirez.
[2021-01-27 19:00] VITALS: BP 98/58
[2021-01-28] VITALS: BP 108/59
--- NOTE | 2021-01-28 06:20 | NUR ---
Patient in room JEFE 358. I have received report from CORRINA Ramirez and had the opportunity to ask questions and assume patient care.
--- NOTE | 2021-01-28 06:30 | NUR ---
Pt refused VS check
[2021-01-28] MEDS: K and/or MAG REPLACEMENT MC SCH ×2 (07:16→20:00)
[2021-01-28] MEDS: lactobacillus rhamnosus 10,000 MMU CELLS/CAPSULE PO SCH ×2 (09:26→20:22)
[2021-01-28] MEDS: docusate sod 100mg capsule PO SCH ×2 (09:26→20:22)
[2021-01-28 11:00] VITALS: BP 103/56
[2021-01-28] MEDS: HYDROcodone/acetaminophen 5mg/325mg tablet PO PRN ×2 (11:54→20:23)
--- NOTE | 2021-01-28 18:50 | NUR ---
Problems reprioritized. Patient report given, questions answered & plan of care reviewed with CORRINA Dunn.
--- NOTE | 2021-01-28 19:12 | NUR ---
I have received report from CORRINA Camarillo and had the opportunity to ask questions and assume patient care.
--- NOTE | 2021-01-28 19:13 | NUR ---
Patient in room JEFE 358. I have received report from CORRINA Camarillo and had the opportunity to ask questions and assume patient care.
[2021-01-29] MEDS: diphenhydrAMINE 25mg capsule PO PRN (01:01)
--- NOTE | 2021-01-29 06:15 | NUR ---
Patient in room JEFE 358. I have received report from Rabia HOUSER and had the opportunity to ask questions and assume patient care.
--- NOTE | 2021-01-29 06:45 | NUR ---
I agree with with assessment, documentation, and report given to CORRINA Robbins by my robert Kinsey RN
--- NOTE | 2021-01-29 06:48 | NUR ---
Problems reprioritized. Patient report given, questions answered & plan of care reviewed with CORRINA Ortiz.
[2021-01-29 08:00] VITALS: BP 112/62
[2021-01-29] MEDS: K and/or MAG REPLACEMENT MC SCH ×2 (08:00→20:00)
[2021-01-29] MEDS: docusate sod 100mg capsule PO SCH ×2 (10:25→20:01)
[2021-01-29] MEDS: lactobacillus rhamnosus 10,000 MMU CELLS/CAPSULE PO SCH ×2 (10:26→20:01)
[2021-01-29] MEDS: HYDROcodone/acetaminophen 5mg/325mg tablet PO PRN ×2 (15:08→20:01)
[2021-01-29 18:00] VITALS: BP 107/57
--- NOTE | 2021-01-29 18:00 | NUR ---
Patient in room JEFE 358. I have received report from CORRINA Ortiz and had the opportunity to ask questions and assume patient care.
--- NOTE | 2021-01-29 18:25 | NUR ---
I have received report from CORRINA Wagner and had the opportunity to ask questions and assume patient care.
--- NOTE | 2021-01-29 18:30 | NUR ---
Problems reprioritized. Patient report given, questions answered & plan of care reviewed with Shaun HOUSER.
[2021-01-30] MEDS: HYDROcodone/acetaminophen 5mg/325mg tablet PO PRN ×4 (00:20→23:02)
--- NOTE | 2021-01-30 06:19 | NUR ---
Problems reprioritized. Patient report given, questions answered & plan of care reviewed with CORRINA Ortiz.
--- NOTE | 2021-01-30 06:20 | NUR ---
I agree with JACLYN RN assessments, documentation, and report given to CORRINA Ortiz
--- NOTE | 2021-01-30 06:30 | NUR ---
Patient in room JEFE 358. I have received report from Shaun HOUSER and had the opportunity to ask questions and assume patient care.
[2021-01-30] MEDS: docusate sod 100mg capsule PO SCH ×2 (07:05→20:49)
[2021-01-30] MEDS: lactobacillus rhamnosus 10,000 MMU CELLS/CAPSULE PO SCH ×2 (07:05→20:49)
[2021-01-30] MEDS: K and/or MAG REPLACEMENT MC SCH ×2 (07:14→20:00)
[2021-01-30 08:00] VITALS: BP 108/53
[2021-01-30 11:00] VITALS: BP 99/53
--- NOTE | 2021-01-30 11:00 | NUR ---
Pain meds given, wound care done as ordered.
[2021-01-30] MEDS ORDERED: LIDOcaine 2% 10ml TOPICAL JELLY (Urojet) TP ONE (12:05)
[2021-01-30 18:00] VITALS: BP 116/52
[2021-01-31] MEDS ORDERED: LIDOcaine 2% 10ml TOPICAL JELLY (Urojet) TP ONE (04:00)
--- NOTE | 2021-01-31 05:32 | NUR ---
Patient Hopkins catheter inserted as per MD ordered and clear yellow urine noted in the collection bag. Dressing to neck done x 2 and tolerated. Patient aware of the transfer and awaiting for transportation. Assisted with needs. Safety and comfort measures maintained.
[2021-01-31] MEDS: HYDROcodone/acetaminophen 5mg/325mg tablet PO PRN ×2 (07:21→13:22)
[2021-01-31] MEDS: docusate sod 100mg capsule PO SCH ×2 (07:21→20:26)
[2021-01-31] MEDS: lactobacillus rhamnosus 10,000 MMU CELLS/CAPSULE PO SCH ×2 (07:21→20:26)
[2021-01-31 08:00] VITALS: BP 116/67
[2021-01-31] MEDS: K and/or MAG REPLACEMENT MC SCH ×2 (08:00→20:00)
[2021-01-31 11:00] VITALS: BP 111/61
--- NOTE | 2021-01-31 18:41 | NUR ---
Problems reprioritized. Patient report given, questions answered & plan of care reviewed with James HOUSER.
[2021-01-31 20:00] VITALS: BP 110/71
--- NOTE | 2021-02-01 00:25 | NUR ---
Patient in room JEFE 358. I have received report from James HOUSER and had the opportunity to ask questions and assume patient care.
--- NOTE | 2021-02-01 01:23 | NUR ---
This RN has reviewed the assessments and interventions documented by the previous RN (James). This RN has assessed the pt and agrees with the documented findings. Will continue to monitor for any changes and address the pts needs accordingly. Focusing on enhancing the pts. comfort.
[2021-02-01] MEDS: diphenhydrAMINE 25mg capsule PO PRN (03:33)
--- NOTE | 2021-02-01 04:12 | NUR ---
Provided wound care per MD orders. Pt tolerated well.
--- NOTE | 2021-02-01 06:17 | NUR ---
Patient in room JEFE 358. I have received report from CORRINA Lyle and had the opportunity to ask questions and assume patient care.
--- NOTE | 2021-02-01 06:20 | NUR ---
Problems reprioritized. Patient report given, questions answered & plan of care reviewed with Alison HOUSER.
[2021-02-01] MEDS: K and/or MAG REPLACEMENT MC SCH ×2 (08:00→20:00)
[2021-02-01] MEDS: lactobacillus rhamnosus 10,000 MMU CELLS/CAPSULE PO SCH ×2 (08:02→21:41)
[2021-02-01] MEDS: docusate sod 100mg capsule PO SCH ×2 (08:02→21:41)
[2021-02-01] MEDS: HYDROcodone/acetaminophen 5mg/325mg tablet PO PRN ×2 (08:56→21:40)
[2021-02-01 10:30] VITALS: BP 116/71
--- NOTE | 2021-02-01 11:54 | NUR ---
Patient tolerated wound care- KM Addendum: 02/01/21 at 1155 by Andria Nielson - Student GUERRERO Amended: Links added.
--- NOTE | 2021-02-01 16:29 | NUR ---
With help of translation tatiana patient refusing to have COVID test done unless it is oral swab. patient was educated that he will need a COVID test to transfer to facility in [place]. Patient states that he had one done 6 months ago and it was horrible so he is refusing. Reinforced teaching that the he will need to have test done as they want a result to make sure he is negative otherwise he will not be accepted and could be discharged back to streets as he is homeless. Patient continue to refuse and stated he is okay with that. Chantel BINGHAM notified as she had called to let this RN know that [facility] would like to get report on patient tonight and not tomorrow.
[2021-02-01 18:00] VITALS: BP 116/55
--- NOTE | 2021-02-01 18:03 | NUR ---
Report called and given to Vasu at [facility] in [place].
--- NOTE | 2021-02-01 18:39 | NUR ---
Problems reprioritized. Patient report given, questions answered & plan of care reviewed with CORRINA Oshea.
--- NOTE | 2021-02-02 03:00 | NUR ---
NECK SHOULDER AND TORSO DRESSINGS CHANGED PER ORDERS. TOLERATED WELL. PLAN OF CARE, TRANSFER TO [facility] DISCUSSED WITH PT. VOICED UNDERSTANDING
--- NOTE | 2021-02-02 06:44 | NUR ---
Patient in room JEFE 358. I have received report from Dayo HOUSER Traveler and had the opportunity to ask questions and assume patient care.
[2021-02-02 08:00] VITALS: BP 112/69
[2021-02-02] MEDS: HYDROcodone/acetaminophen 5mg/325mg tablet PO PRN (08:24)
[2021-02-02] MEDS: lactobacillus rhamnosus 10,000 MMU CELLS/CAPSULE PO SCH (08:25)
--- NOTE | 2021-02-02 08:45 | NUR ---
Pt DC to [facility] in [place], Pt is A & O x4 and in no apparent distress. Pt's belongings were send with [facility] staff. pt medicated before departure. Pt also given a lunch for the road. Report was called to [facility] spoke to Shadia Director of the facility. [facility]
== END 2021-02-02 08:40 | disposition hospice, inpatient (51) | DRG 663 ==
LOC: ER 18:08 → ED HOLD 21:45 → SUR 3N 01-18 07:38
PROVIDERS: ADMIT Internal Medicine; ATTEND Internal Medicine
PROC: 30233N1 Transfusion of Nonautologous Red Blood Cells into Peripheral Vein, Percutaneous Approach (ICD-10-PCS; principal; 2021-01-17)
DX: D64.9 Anemia, unspecified (principal); E46 Unspecified protein-calorie malnutrition; C76.0 Malignant neoplasm of head, face and neck; L03.221 Cellulitis of neck; S11.89XA Other open wound of other specified part of neck, initial encounter; M54.2 Cervicalgia; R22.1 Localized swelling, mass and lump, neck; X58.XXXA Exposure to other specified factors, initial encounter; Z20.822 Contact with and (suspected) exposure to COVID-19; Z51.5 Encounter for palliative care; Z59.00 Homelessness unspecified; Z91.19 Patient's noncompliance with other medical treatment and regimen; Z68.21 Body mass index [BMI] 21.0-21.9, adult; Z79.899 Other long term (current) drug therapy; Y93.89 Activity, other specified; Y92.89 Other specified places as the place of occurrence of the external cause; Y99.8 Other external cause status
CPT/HCPCS: 36415; 36430; 71045; 80053; 80202; 83520; 83540; 83550; 83605; 84145; 85007; 85008; 85025; 85027; 85045; 86885; 86900; 86901; 86920; 87040; 87077; 87186; 87635; 97110; 97116; 97162; 97530; 99291; G0378; J1756; J3370; J7030; J7050; P9016; Q0163